=== PATIENT | male | born 1990 | race Caucasian/White ===

== ENCOUNTER → 2017-11-03 | Outpatient (CLI) | payer OTHER ==
[~2017-11-03] MED LIST: GENTAMICIN SU3 MG/ML OPHTHALMIC; IBUPROFEN 800800 M1 PO; NOHOMEMEDICATIONS; NORCO 5-325 TA1 EACH PO; TRAMADOL 50 MG50 MG PO
== END ==
LOC: CAT 16:22
DX: J32.9 Chronic sinusitis, unspecified (principal); J34.2 Deviated nasal septum; J34.3 Hypertrophy of nasal turbinates; J30.2 Other seasonal allergic rhinitis; H53.8 Other visual disturbances; L90.5 Scar conditions and fibrosis of skin; Z87.81 Personal history of (healed) traumatic fracture; Z87.820 Personal history of traumatic brain injury

== ENCOUNTER → 2017-11-14 | Outpatient (CLI) | payer OTHER | LOC: MRI 14:10 | DX: S02.91XA Unspecified fracture of skull, initial encounter for closed fracture (principal); X58.XXXA Exposure to other specified factors, initial encounter; Y93.89 Activity, other specified; Y92.89 Other specified places as the place of occurrence of the external cause; Y99.8 Other external cause status ==